=== PATIENT | male | born 1955 | race Caucasian/White ===

== ENCOUNTER 2019-08-23 06:39 | Inpatient (IN) | payer OTHER ==
[~2019-08-23] VITALS: Ht 172.7 cm; Wt 109.9 kg
[~2019-08-23 06:39] MED LIST: CELEBREX PO; COUMADIN 5 MG TA5 M1 PO; HYDROCODON-ACE1 EACH PO; IBUPROFEN 800800 M1 PO; KEFLEX250 M1 PO; LOVENOX SC; SYNTHROID100 MC1 PO; TRAMADOL 50 MG50 MG PO
[2019-08-23 06:53] VITALS: BP 123/81
[2019-08-23] MEDS ORDERED: LISINOPRIL20 MG PO (06:56)
[2019-08-23] MEDS ORDERED: GLIPIZIDE 10 MG10 MG PO (06:57)
[2019-08-23] MEDS ORDERED: JANUMET 50-5001 EACH PO (06:57)
[2019-08-23] MEDS ORDERED: BASAGLAR K100 UNIT/1 SUBQ (06:58)
[2019-08-23] MEDS ORDERED: [UNRECOGNIZED DRUG - OTHER] PO (06:58)
[2019-08-23 07:18] LABS: ABSOLUTE BASOPHILS 0.1 thou/uL (0.0-0.2); ABSOLUTE EOSINOPHILS 0.3 thou/uL (0.0-0.7); ABSOLUTE LYMPHOCYTES 1.4 thou/uL (0.8-5.3); ABSOLUTE NEUTROPHILS 7.3 thou/uL (1.6-8.1); BASOPHILS 0.6 %; EOSINOPHILS 2.5 %; HEMATOCRIT 42.9 % (42.0-52.0); HEMOGLOBIN 14.6 gm/dL (14.0-18.0); LYMPHOCYTES 13.9 %; MCH 32.1 pg (26.0-34.0); MCV 94.3 fL (80.0-100.0); MONOCYTES 9.8 %; MPV 8.9 fl. (7.2-11.1); NUCLEATED RBCS 0 /100WBC; PLATELET COUNT* 279 thou/uL (150-400); POLYS 73.2 %; RBC 4.55 mil/uL (4.50-6.00); RDW-CV 14.3 % (10.5-14.5)
[2019-08-23 07:26] LABS: ANION GAP 11 mmol/L (7-16); BUN 25 mg/dL (7-18); CALCIUM 8.5 mg/dL (8.5-10.1); CHLORIDE 105 mmol/L (98-107); CO2 22 mmol/L (21-32); CREATININE 1.5 mg/dL (0.6-1.3); GLUCOSE 158 mg/dL (70-99); POTASSIUM 4.1 mmol/L (3.5-5.1); SODIUM 138 mmol/L (136-145)
[2019-08-23 07:35] LABS: ALBUMIN 4.1 g/dL (3.4-5.0); ALKALINE PHOSPHATASE 31 U/L (46-116); SGOT 22 U/L (15-37); SGPT 33 U/L (30-65); TOTAL BILIRUBIN 0.6 mg/dL (<0.1-1.0); TOTAL PROTEIN 7.8 g/dL (6.4-8.2); TROPONIN-I LEVEL <0.06 ng/mL (<0.06)
[2019-08-23 07:39] LABS: APTT 26.1 Seconds (25.0-31.3); INR 1.1; PROTIME 11.4 Seconds (9.20-11.50)
[2019-08-23] MEDS ORDERED: ASPIRIN325 PO (08:14)
--- NOTE | 2019-08-23 08:59 | NUR ---
PATIENT IS BEING TRANSPORTED TO CT BY RADIOLOGY.
[2019-08-23 10:12] LABS: URINE BILIRUBIN NEGATIVE (Negative); URINE BLOOD NEGATIVE (Negative); URINE CLARITY CLEAR; URINE COLOR YELLOW; URINE GLUCOSE-RANDOM NEGATIVE (Negative); URINE KETONES NEGATIVE (Negative); URINE LEUKOCYTES-REFLEX NEGATIVE (Negative); URINE NITRITE-REFLEX NEGATIVE (Negative); URINE PROTEIN NEGATIVE (Negative); URINE SPECIFIC GRAVITY <= 1.005 (1.005-1.030); URINE UROBILINOGEN 0.2 E.U./dl (0.2-1.0)
[2019-08-23 11:53] VITALS: BP 113/62
--- NOTE | 2019-08-23 14:08 | NUR ---
RECEIVED REPORT FROM ER AT 1140, GET SITUATED TO ROOM, TELE IN PLACED TRACING SR ON MONITOR. PT COMPLAINS OF BILATERAL LEG PAIN RELIEVED BY REST. PT AOX4, UP SBA, O2 SAT 90'S RA. IV ACCESS INTACT, LAST BM TODAY. PT FOR ACCU CHECK. VSS. ADMISSION ASSESSMENT CHARTED. RECONCILED MEDS. SCD ON, CALL LIGHT WITHIN REACH, HOURLY ROUNDING, WILL CONTIMUE TO MONITOR
[2019-08-23 16:00] VITALS: BP 118/65
[2019-08-23 20:00] VITALS: BP 142/71
[2019-08-24] VITALS: BP 125/65
[2019-08-24 04:00] VITALS: BP 121/65
[2019-08-24 08:00] VITALS: BP 123/71
[2019-08-24 11:36] VITALS: BP 139/78
--- NOTE | 2019-08-24 11:51 | EKG ---
[place] [address] ELECTROCARDIOGRAM REPORT Name: CIERRA VALERA Room: [address] ADM IN M.R.#: [id number] Admission: 08/23/19 Attend Phys: Rodolfo Anne Discharge: Date of : 59 Report #: [id number] THIS REPORT FOR: //name// [facility] ED Test Date: 2019-08-23 Test Time: 08:21:28 Pat Name: CIERRA VALERA Department: Room: [facility] Gender: M Top Polisher: : 1955 Requested By: Lelo Sheldon Order Number: [id number] MD: Boris Murray Measurements Intervals [place] Rate: 73 P: 13 OR: 153 QRS: 5 QRSD: 96 T: -1 QT: 333 QTc: 367 Interpretive Statements Sinus rhythm Borderline T abnormalities, inferior leads Borderline ST elevation, lateral leads Compared to ECG 09/03/2011 14:40:59 T-wave abnormality now present ST (T wave) deviation now present Electronically Signed On 08-24-2019 11:51:37 CDT by Boris Murray [email or web address] <ELECTRONICALLY SIGNED> By: Boris Murray MD, FACC 08/24/19 1151 0 0 Boris Murray MD, [facility] /EPI
[2019-08-24] MEDS ORDERED: ELIQUIS5 MG PO (13:02)
--- NOTE | 2019-08-24 13:34 | NUR ---
Pt is A&O. Resides at home with his . Active and independent. No DME. No hx of HH or SNF. Goal is home at wa, anticipate dc today. Following.
[2019-08-24 13:58] VITALS: BP 139/78
--- NOTE | 2019-08-24 15:24 | NUR ---
ASSUSSMED CARE OF PT APPROX 0730. REASSESSMENT COMPLETED CHARTED. MEDICATIONS GIVEN CHARTED. DISCUSSED MEDICATIONS WITH PT. PT VERBALIZED UNDERSTNDING. SAFETY PRECAUTIONS UTILZED, HOURLY ROUNDED FOR PT SAFTEY. DISCHARGE TEACHING COMPLETED WITH PT, PT VERBALIZED UNDERSTANDING. PT FAMILY AT BEDSIDE. PT ESCORTED TO VEHICLE.
== END 2019-08-24 14:30 | disposition home or self-care (01) | DRG 299 ==
LOC: M.ERS 06:39 → M.2W 10:10 → M.TBA-ER 10:10 → M.2W 11:38
PROVIDERS: Personal Emergency Response Attendant; ADMIT Internal Medicine
DX: I82.433 Acute embolism and thrombosis of popliteal vein, bilateral (principal); I26.99 Other pulmonary embolism without acute cor pulmonale; E03.9 Hypothyroidism, unspecified; M19.90 Unspecified osteoarthritis, unspecified site; I82.412 Acute embolism and thrombosis of left femoral vein; Z96.651 Presence of right artificial knee joint; Z90.49 Acquired absence of other specified parts of digestive tract; Z80.0 Family history of malignant neoplasm of digestive organs; Z79.899 Other long term (current) drug therapy

== ENCOUNTER 2019-08-28 13:12 | Inpatient (IN) | payer OTHER ==
[~2019-08-28] VITALS: Ht 175.3 cm; Wt 108.8 kg
[~2019-08-28 13:12] MED LIST changes: +ASPIRIN325 PO; +BASAGLAR K100 UNIT/1 SUBQ; +ELIQUIS5 MG PO; +GLIPIZIDE 10 MG10 MG PO; +JANUMET 50-5001 EACH PO; +LISINOPRIL20 MG PO; +[UNRECOGNIZED DRUG - OTHER] PO
[2019-08-28 13:18] VITALS: BP 154/89
[2019-08-28 13:53] LABS: ABSOLUTE BASOPHILS 0.1 thou/uL (0.0-0.2); ABSOLUTE EOSINOPHILS 0.3 thou/uL (0.0-0.7); ABSOLUTE LYMPHOCYTES 1.4 thou/uL (0.8-5.3); ABSOLUTE MONOCYTES 0.8 thou/uL (0.0-1.2); BASOPHILS 0.7 %; EOSINOPHILS 2.9 %; HEMATOCRIT 40.9 % (42.0-52.0); HEMOGLOBIN 13.9 gm/dL (14.0-18.0); LYMPHOCYTES 14.9 %; MCH 32.4 pg (26.0-34.0); MCHC 34.1 g/dL (28.0-37.0); MONOCYTES 7.9 %; MPV 8.8 fl. (7.2-11.1); NUCLEATED RBCS 0 /100WBC; PLATELET COUNT* 313 thou/uL (150-400); POLYS 73.6 %; RDW-CV 14.4 % (10.5-14.5); WBC 9.6 thou/uL (4.0-11.0)
[2019-08-28 14:01] LABS: ANION GAP 10 mmol/L (7-16); BUN 20 mg/dL (7-18); CALCIUM 8.6 mg/dL (8.5-10.1); CHLORIDE 100 mmol/L (98-107); CO2 24 mmol/L (21-32); CREATININE 1.2 mg/dL (0.6-1.3); GLUCOSE 145 mg/dL (70-99); POTASSIUM 4.9 mmol/L (3.5-5.1); SODIUM 134 mmol/L (136-145)
[2019-08-28 14:11] LABS: ALBUMIN 3.6 g/dL (3.4-5.0); ALKALINE PHOSPHATASE 28 U/L (46-116); LIPASE 141 U/L (73-393); SGOT 35 U/L (15-37); SGPT 35 U/L (30-65); TOTAL BILIRUBIN 0.7 mg/dL (<0.1-1.0); TOTAL PROTEIN 7.4 g/dL (6.4-8.2); TROPONIN-I LEVEL <0.06 ng/mL (<0.06)
[2019-08-28 14:22] LABS: BE -2.5 mmol/L (-2 to +3); PCO2 35.5 mmHg (35.0-45.0); PO2 72.2 mmHg (75.0-100.0); pH 7.402 (7.340-7.450)
[2019-08-28 14:56] LABS: URINE BILIRUBIN NEGATIVE (Negative); URINE BLOOD NEGATIVE (Negative); URINE CLARITY CLEAR; URINE COLOR YELLOW; URINE GLUCOSE-RANDOM NEGATIVE (Negative); URINE KETONES NEGATIVE (Negative); URINE LEUKOCYTES-REFLEX NEGATIVE (Negative); URINE NITRITE-REFLEX NEGATIVE (Negative); URINE PROTEIN NEGATIVE (Negative); URINE SPECIFIC GRAVITY >= 1.030 (1.005-1.030); URINE UROBILINOGEN 0.2 E.U./dl (0.2-1.0)
[2019-08-28 15:48] LABS: APTT 28.7 Seconds (25.0-31.3); INR 1.1; PROTIME 11.4 Seconds (9.20-11.50)
--- NOTE | 2019-08-28 16:28 | EKG ---
[place] [address] ELECTROCARDIOGRAM REPORT Name: CIERRA VALERA Room: [place] [address] ADM IN .R.#: [id number] Admission: 08/28/19 Attend Phys: Chichi Mullins MD Discharge: Date of : 59 Report #: [id number] THIS REPORT FOR: //name// [facility] ED Test Date: 2019-08-28 Test Time: 13:19:22 Pat Name: CIERRA VALERA Department: Room: [facility] Gender: M Braid Folder: EV : 1955 Requested By: Lelo Sheldon Order Number: [id number] MD: Cierra Romano Measurements Intervals [place] Rate: 93 P: 64 MS: 146 QRS: 25 QRSD: 98 T: 3 QT: 347 QTc: 432 Interpretive Statements Sinus rhythm Probable left atrial enlargement Inferior infarct, old Compared to ECG 08/23/2019 08:21:28 Myocardial infarct finding now present T-wave abnormality no longer present ST (T wave) deviation no longer present Electronically Signed On 08-28-2019 16:28:32 CDT by Cierra Romano [email or web address] <ELECTRONICALLY SIGNED> By: Cierra Romano MD, FAC 08/28/19 1628 1319 1319 Cierra Romano MD, [facility] /EPI
[2019-08-28 17:36] VITALS: BP 139/82
[2019-08-28 18:00] VITALS: BP 138/86
[2019-08-28] MEDS ORDERED: ZANTAC 150MG T150 MG PO (18:29)
[2019-08-28 20:00] VITALS: BP 135/68
[2019-08-28 20:24] VITALS: BP 135/68
[2019-08-28 23:56] VITALS: BP 126/72
--- NOTE | 2019-08-29 01:55 | NUR ---
PT ALERT AND ORIENTED. BR WITH BRP. VOIDS PER URINAL. AT BS. HEPARIN BOLUS AND QTT STARTED AT 1500 UNITS/HR. NEXT PTT AT 0230. TELEMETRY SHOWS SR. RESTING.
[2019-08-29 03:11] LABS: HEMOGLOBIN 13.4 gm/dL (14.0-18.0); MCH 31.8 pg (26.0-34.0); MCHC 33.6 g/dL (28.0-37.0); MCV 94.7 fL (80.0-100.0); MPV 8.2 fl. (7.2-11.1); RBC 4.23 mil/uL (4.50-6.00); RDW-CV 14.1 % (10.5-14.5); WBC 8.5 thou/uL (4.0-11.0)
[2019-08-29 03:20] LABS: CALCIUM 8.2 mg/dL (8.5-10.1); CREATININE 1.3 mg/dL (0.6-1.3); MAGNESIUM 2.2 mg/dL (1.8-2.4); POTASSIUM 4.7 mmol/L (3.5-5.1)
[2019-08-29 04:39] VITALS: BP 120/63
[2019-08-29 07:45] VITALS: BP 121/74
--- NOTE | 2019-08-29 11:00 | 2DMMODE ---
[place] [address] 2 D/M-MODE ECHOCARDIOGRAM Name: CIERRA VALERA Room: [address] ADM IN Sonya#: [id number] Admission: 08/28/19 Attend Phys: Chichi Mullins, Discharge: Date of : 59 Date of Service: 08/29/19 1100 Report #: [id number] THIS REPORT FOR: //name// APPROVED REPORT Study performed: 08/29/2019 09:53:31 EXAM: Comprehensive 2D, Doppler, and color-flow Echocardiogram Patient Location: In-Patient Room #: [facility] Status: routine BSA: 2.24 HR: 75 bpm BP: 121/74 mmHg Rhythm: NSR Other Information Study Quality: Good Indications Pulmonary Embolism 2D Dimensions IVSd: 10.64 (7-11mm) LVOT Diam: 19.33 (18-24mm) LVDd: 50.62 mm PWd: 10.64 (7-11mm) LVDs: 26.83 (25-40mm) Aortic Root: 28.14 mm Volumes Left Atrial Volume (Systole) LA ESV Index: 17.60 mL/m2 Aortic Valve AoV Peak Morgan.: 1.39 m/s AO Peak Gr.: 7.77 mmHg LVOT Max P.79 mmHg AO Mean Gr.: 4.58 mmHg LVOT Mean P.63 mmHg LVOT Max V: 1.20 m/s AO V2 VTI: 24.92 cm LVOT Mean V: 0.73 m/s ODILON (VTI): 2.60 cm2 LVOT V1 VTI: 22.09 cm Mitral Valve E/A Ratio: 1.08 MV Decel. Time: 213.41 ms MV E Max Morgan.: 0.66 m/[place] [address] 2 D/M-MODE ECHOCARDIOGRAM Name: CIERRA VALERA Room: [address] IN M.R.#: [id number] Admission: 08/28/19 Attend Phys: Chichi Mullins, Discharge: Date of : 59 Date of Service: 08/29/19 [facility] Report #: [id number] MV PHT: 61.89 ms MVA (PHT): 3.55 cm2 TDI E/Lateral E': 6.00 E/Medial E': 5.50 Medial E' Morgan.: 0.12 m/s Lateral E' Morgan.: 0.11 m/s Pulmonary Valve PV Peak Morgan.: 1.18 m/s PV Peak Gr.: 5.56 mmHg Tricuspid Valve RAP Estimate: 5.00 mmHg TR Peak Gr.: 22.72 mmHg RVSP: 27.00 mmHg PA Pressure: 27.00 mmHg Left Ventricle The left ventricle is normal size. There is normal LV segmental wall motion. There is normal left ventricular wall thickness. Left ventricular systolic function is normal. LVEF is 55-60%. The left ventricular diastolic function is normal. Right Ventricle The right ventricle is normal size. The right ventricular systolic function is normal. Atria The left atrium size is normal. The right atrium size is normal. Aortic Valve The aortic valve is normal in structure. No aortic regurgitation is present. There is no aortic valvular stenosis. Mitral Valve The mitral valve is normal in structure. There is no mitral valve regurgitation noted. No evidence of mitral valve stenosis. Tricuspid Valve The tricuspid valve is normal in structure. Mild tricuspid regurgitation. No pulmonary hypertension. Pulmonic Valve The pulmonary valve is normal in structure. There is [place]mon[place] [address] 2 D/M-MODE ECHOCARDIOGRAM Name: VALERACIERRA Room: [address] IN [facility]#: [id number] Admission: 08/28/19 Attend Phys: Chichi Mullins, Discharge: Date of : 59 Date of Service: 08/29/19 1100 Report #: [id number] Great Vessels The aortic root is normal in size. IVC is not well visualized. Pericardium There is no pericardial effusion. <Conclusion> The left ventricle is normal size. There is normal left ventricular wall thickness. Left ventricular systolic function is normal. LVEF is 55-60%. The left ventricular diastolic function is normal. Mild tricuspid regurgitation. No pulmonary hypertension. <ELECTRONICALLY SIGNED> By: Alfred Fischer MD, FACC 08/29/19 1100 1100 99 Alfred Fischer MD, FACC /INF
[2019-08-29 12:00] VITALS: BP 118/62
--- NOTE | 2019-08-29 15:21 | NUR ---
WAS ASKED TO CHECK COST ON LOVENOX FOR ONE WEEK, PER [facility], IS $10 FOR 14 100MG SYRINGES. NO SCRIPT CALLED IN, JUST CHECKED COST
[2019-08-29 16:15] VITALS: BP 124/68
--- NOTE | 2019-08-29 16:36 | NUR ---
Pt readmitted. Pt lives at home with and has been independent, no needs. No history of HH or SNF and no DME. SW to continue to follow to assist with safe dc planning if needs arise.
--- NOTE | 2019-08-29 18:14 | NUR ---
ASSUMED PT CARE AT 0730, FULL ASSESMENT DONE CHARTED. PT A/O X4, BEDREST THIS AM. PT USES CALL LIGHT APPROPRIATLY FOR ASSISTANCE TO BATHROOM. PT EDUCATED SEVERAL TIMES ON THE PLAN OF CARE AND MEDS. PT DENIES PAIN, STATES "I AM FEELING BETTER THAN YESTERDAY BUT HAD A LITTLE TROUBLE BREATHING WHEN I WENT TO THE BATHROOM." PT ON RA, VSS, SR ON THE MONITOR. WILL CONTINUE WITH PLAN OF CARE.
[2019-08-29 19:40] VITALS: BP 135/54
[2019-08-29 23:53] VITALS: BP 103/62
[2019-08-30 04:00] VITALS: BP 116/61
[2019-08-30 05:09] LABS: INR 1.1; PROTIME 11.2 Seconds (9.20-11.50)
--- NOTE | 2019-08-30 05:11 | NUR ---
PT ALERT AND ORIENTED. VSS ON RA. ASSESSMENT DOCUMENTED. MED GIVEN PER EMAR. PT AMBULATED TO BATHROOM BUT STATES HE FEELS LIKE HE MAY NOT BE STRONG ENOUGH TO WALK TO BATHROOM. PT INFORMED TO CALL FOR ASSISTANCE IF GOING TO BATHROOM. URINALS CLOSE TO PT AND EMPTIED ACCORDINGLY. AT BEDSIDE THIS SHIFT. CALL LIGHT WITHIN REACH. HOURLY ROUNDINGS MADE. WILL CONTINUE TO MONITOR.
[2019-08-30 12:00] VITALS: BP 129/69
--- NOTE | 2019-08-30 15:00 | NUR ---
SPOKE WITH PT.IN ROOM. DISCUSSED COST OF LOVENOX. HE SAID THAT WAS FINE. HE HAS GIVEN HIMSELF INJECTIONS BEFORE. IE:INSULIN,LOVENOX IN PAST. EXPLAINED NEED TO TAKE COUMADIN AND LOVENOX,BOTH,UNTIL INR THERAPUETIC. HE IS AGREEABLE TO HOME HEALTH IF ORDERED.
[2019-08-30 16:00] VITALS: BP 108/51
[2019-08-30 20:00] VITALS: BP 122/65
[2019-08-31 00:39] VITALS: BP 106/63
--- NOTE | 2019-08-31 02:55 | NUR ---
PT ALERT ORIENTED. UP AD JOHN IN ROOM. TELEMETRY SHOWS SR. L LOWER EXTREMETY 2+ EDEMA. THIGH HIGH TEDS ON. PT COMFORTABLE.
[2019-08-31 04:00] VITALS: BP 100/42
[2019-08-31 04:32] LABS: INR 1.2; PROTIME 12.1 Seconds (9.20-11.50)
[2019-08-31 07:45] VITALS: BP 130/71
--- NOTE | 2019-08-31 11:19 | NUR ---
ASSUMED CARE OF PT AT 0730. PT RESTING IN CHAIR WAITING FOR BREAKFAST. PT A&0X4, DENIES ANY PAIN OR SHORTNESS OF BREATH AT THIS TIME. TRACING SR ON THE QUALITY ASSURANCE QA LAB TECHNICIAN. ST WITH AMBULATION. ON RA SAT 95%, 2L NC PRN. PT UP AD JOHN IN ROOM. THIGH HIGH KRANTHI HOSE TO BLE-EDEMA-2+ NOTED TO LLE. GOAL FOR TODAY IS PAIN MGMT, MONITOR LABS, INCREASE ACTIVITY AND EXERCISE DESAT PER PULM. AM ASSESSMENT CHARTED. MEDICATIONS PER JAN. PT REPOSITIONS SELF. HOURLY ROUNDING OBSERVED. BED IN LOW POSITION. CALL LIGHT WITHIN REACH. WILL CONTINUE PLAN OF CARE.
[2019-08-31 12:04] VITALS: BP 119/60
[2019-08-31 16:11] VITALS: BP 112/67
--- NOTE | 2019-08-31 16:37 | NUR ---
ASSUMED CARE OF PT THIS AM AROUND 1615- PT BS NOTED TO BE 74, SCHEDULED EVENING METFORMIN HELD- COUMADIN GIVEN PRESCRIBED- CALL LIGHT AND PERSONAL BELONGINGS WITH IN REACH- PT MAKES NEEDS KNOWN- ALL NEEDS MET AT THIS TIME-WCLENORA
[2019-08-31 20:00] VITALS: BP 118/62
[2019-09-01] VITALS (7 sets, daily range): BP systolic 105–122; BP diastolic 59–69
[2019-09-01 03:57] LABS: INR 1.6
--- NOTE | 2019-09-01 05:30 | NUR ---
PT ABLE TO GIVE SELF INJECTION OF LOVENOX WITHOUT PROMPTING.PT RESTED COMFORTABLY WITHOUT COMPLAINT.TELE SHOWS SR. PT GOALS MET. MEDS GIVEN PER EMAR.CALL LIGHT WITHIN REACH.
[2019-09-01] MEDS ORDERED: LEVAQUIN 750 M750 MG PO (09:30)
[2019-09-01] MEDS ORDERED: COUMADIN 5 MG TA5 M1 PO (09:30)
[2019-09-01] MEDS ORDERED: ENOXAPARIN100 MG/11 SUBQ (09:30)
--- NOTE | 2019-09-01 11:16 | NUR ---
ASSUMED CARE OF PT AT 0730. PT RESTING IN CHAIR WAITING FOR BREAKFAST. A&0X4, DENIES ANY PAIN OR SHORTNESS OF BREATH AT THIS TIME. TRACING SR ON THE EMBEDDED HARDWARE ENGINEER. ON RA SAT 97%. PT UP AD JOHN IN ROOM. PT GOAL FOR TODAY IS CONTINUE WITH LOVENOX EDUCATION AND DISCHARGE PLANNING TO HOME. AM ASSESSMENT CHARTED. MEDICATIONS PER MAR. PT REPOSITIONS SELF. HOURLY ROUNDING OBSERVED. BED IN LOW POSITION. CALL LIGHT WITHIN REACH. WILL CONTINUE PLAN OF CARE.
--- NOTE | 2019-09-01 14:46 | CON ---
[address] [address] CONSULTATION Name: CIERRA VALERA Room: [address] IN M.R.#: [id number] Admission: 08/28/19 Attend Phys: Chichi Mullins MD Discharge: Date of : 59 Report #: [id number] THIS REPORT FOR: //name// CC: Chichi Amaro DATE OF SERVICE: 08/29/2019 The patient was seen earlier in the morning. REASON FOR CONSULTATION: DVT. HISTORY OF PRESENT ILLNESS: A 63-year-old male who has been previously diagnosed with a left lower extremity DVT back as 7 years ago, which was provoked after surgery. The patient reported he had a filter placed at that time. He was admitted to [facility] after bilateral lower extremity pain with abdominal pain. Two weeks ago, he has been diagnosed with DVT and PE and he was started on Eliquis. The patient on multiple occasions was compliant with his Eliquis treatments, and upon evaluation yesterday in the Emergency Room, CT scan showed the IVC filter with occlusive thrombus extending from the filter inferiorly throughout the common iliac, external iliac, common femoral and visualized proximal superficial femoral vein, appears to be progressive compared to 08/23/2019. Also, carotid Doppler which was done today which showed mild bilateral atherosclerotic plaquing without hemodynamically significant stenosis. The patient has been started on anticoagulation with heparin. He had a 2D echo, which showed ejection fraction of 50-60%. The patient does not have any family history of DVT. REVIEW OF SYSTEMS: All systems are reviewed, it was negative except the above. PAST MEDICAL HISTORY: DVT and PE as mentioned above. He is very active. Hypertension, hypothyroidism, diabetes mellitus. MEDICATIONS: Per admission list. ALLERGIES: No known allergies. PAST SURGICAL HISTORY: Right knee replacement, tonsillectomy, appendectomy, carpal tunnel surgery, cataract surgery. FAMILY HISTORY: Mother with colon cancer. SOCIAL HISTORY: No smoking. He drinks alcohol occasionally. No drug abuse. PHYSICAL EXAMINATION: VITAL SIGNS: Today, temperature 36.9, pulse 76, respirations 17, [place] [address] CONSULTATION Name: CIERRA VALERA Room: [address] IN [facility]#: [id number] Admission: 08/28/19 Attend Phys: Chichi Mullins MD Discharge: Date of : 59 Report #: [id number] is 124/74. GENERAL: The patient was lying in bed. He was not in acute distress. LUNGS: Clear to auscultation bilaterally. HEART: Regular rate and rhythm. S1, S2 within normal limits. ABDOMEN: Soft, nontender, nondistended. Lower extremity showed positive edema, warmth, and no erythema. LABORATORY DATA: Today, WBC 8.5, hemoglobin 13.4, platelets 285,000. Coagulation: PT 11.4, PTT most recent one this morning around 10 o'clock it was 54.4, creatinine 1.1. IMAGING: As mentioned above. ASSESSMENT AND PLAN: A 63-year-old male who has been evaluated because of progressive deep venous thrombosis despite being on anticoagulation with Eliquis. The patient does not have any provoking factors. However, previously 6-7 years ago, he had an IVC filter placed which was treated with 3-6 months of anticoagulation with Coumadin. RECOMMENDATIONS: At this point, I agree with anticoagulation with heparin. We will also agree with vascular evaluation for thrombectomy. In terms of anticoagulation once the decision is made regarding his surgical intervention, the patient can be started on oral anticoagulant with Coumadin with a goal of INR between 2 and 3. At this point, I would hold on thrombophilia workup since the patient will be on anticoagulation for the rest of his life since it is a second deep venous thrombosis regardless the results of the thrombophilia. We will continue to follow the patient during hospitalization. <ELECTRONICALLY SIGNED> By: Baldomero Moise MD 09/01/19 1446 1740 2130Baldomero Moise MD /nt
--- NOTE | 2019-09-01 16:22 | NUR ---
Pt to dc home today in need of HH RN to check INR starting tomorrow and every day forth until INR therapuetic. TENISHA attempted multiple (12) HH agencies and they were either not in network with [facility] or did not have staffing available to start tomorrow. TENISHA sent Brianne Isaac the referral and called to follow up on status, Brianne Isaac quoted stating that a response would take at least 4 hours. TENISHA had called [facility] HH agency earlier who had not had a nurse available for Wednesday but then [facility] called back stating that they would be able to have a nurse to see pt on Wednesday after all. [facility] accepted referral with following doctor of Dr Moise to manage the coumadin/INR. [facility] ph [phone] fax [phone]
--- NOTE | 2019-09-01 17:02 | NUR ---
DISCHARGE ORDERS RECEIVED. DISCHARGE INSTRUCTIONS, CARE NOTES, SCRIPTS AND FOLLOW UP APPTS GIVEN TO PT. PT COMMUNICATES UNDERSTANDING OF DISCHARGE TEACHING. IV AND KIER TENDER REMOVED. PT DISCHARGED WITH ALL BELONGINGS AND PAPERWORK VIA WHEELCHAIR WITH NURSING STAFF TO SPOUSE OWN PERSONAL VEHICLE. DISCHARGED TO HOME WITH HOME HEALTH.
== END 2019-09-01 17:02 | disposition home health service (06) | DRG 299 ==
LOC: M.ERS 13:12 → M.2W 16:14 → M.TBA-ER 16:14 → M.2W 17:46
PROVIDERS: Personal Emergency Response Attendant; ADMIT Internal Medicine
DX: I82.423 Acute embolism and thrombosis of iliac vein, bilateral (principal); I26.99 Other pulmonary embolism without acute cor pulmonale; J18.9 Pneumonia, unspecified organism; E03.9 Hypothyroidism, unspecified; M19.90 Unspecified osteoarthritis, unspecified site; Z96.651 Presence of right artificial knee joint; Z90.49 Acquired absence of other specified parts of digestive tract; Z80.0 Family history of malignant neoplasm of digestive organs; Z95.828 Presence of other vascular implants and grafts; Z79.82 Long term (current) use of aspirin; Z79.899 Other long term (current) drug therapy; Z79.01 Long term (current) use of anticoagulants; Z28.21 Immunization not carried out because of patient refusal

== ENCOUNTER → 2019-09-12 | Outpatient (CLI) | payer OTHER ==
[~2019-09-12] MED LIST changes: +ENOXAPARIN100 MG/11 SUBQ; +LEVAQUIN 750 M750 MG PO; +ZANTAC 150MG T150 MG PO
--- NOTE | 2019-09-13 17:37 | HEMONC ---
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 SUBJECTIVE: The patient presented today after he was discharged from the hospital. He was transitioned from Lovenox to Coumadin. I checked his INR as an outpatient and he had overlap with Lovenox and Coumadin with a therapeutic INR for more than 2 days. Most recent INR yesterday was 1.8. The patient reported that he is consistent with his green vegetable diet. He reported still exercise intolerance. He will feel very short of breath quickly. His right lower extremity swelling has decreased significantly. Today, we discussed the value of thrombophilia, which is not going to make any difference for his treatment. He is going to be on Coumadin since he failed Eliquis and he will be on a lifelong anticoagulation. REVIEW OF SYSTEMS: All systems reviewed. It was negative except the above. PAST MEDICAL, SOCIAL, FAMILY HISTORY: Unchanged except from his last visit. MEDICATIONS: List has been reviewed. PHYSICAL EXAMINATION: VITAL SIGNS: Blood pressure is 126/89, pulse is 102, respirations 18, temperature is 97.7, sat is 96% on room air. GENERAL: The patient was sitting in chair, was not in acute distress. LUNGS: Clear to auscultations bilaterally. HEART: Regular rate and rhythm. S1, S2 within normal limits. ABDOMEN: Soft, nontender, nondistended. EXTREMITIES: Trace of edema on the right lower extremity. ASSESSMENT AND PLAN: A 63-year-old male who has been previously evaluated in the inpatient setting due to extensive right lower extremity deep venous thrombosis. The patient had unprovoked episodes prior deep venous thrombosis, which was provoked after surgery 7 years ago on the left lower extremity. The patient failed Eliquis with a progression of his deep venous thrombosis. RECOMMENDATIONS: The patient continues to tolerate Coumadin. His INR yesterday was 1.8. I would like to repeat his INR in the next 48 [place] [address] HEMATOLOGY ONCOLOGY NOTE Name: CIERRA VALERA Room: [facility]#: [id number] Admission: 09/12/19 Attend Phys: Baldomero Moise MD Discharge: Date of : 59 Report #: [id number] subtherapeutic, we will increase his dose to 7 mg. The last change in his Coumadin dose was 4 days ago 6 mg. The patient was encouraged to do persistent small activity, leg elevations. <ELECTRONICALLY SIGNED> By: Baldomero Moise MD 09/13/19 1737 0951 1037Mohammad MD Suma /miguel angel
== END ==
LOC: M.RTH 05:32
DX: I26.99 Other pulmonary embolism without acute cor pulmonale (principal); I82.491 Acute embolism and thrombosis of other specified deep vein of right lower extremity; Z88.8 Allergy status to other drugs, medicaments and biological substances; Z79.899 Other long term (current) drug therapy

== ENCOUNTER → 2019-10-31 | Outpatient (CLI) | payer OTHER ==
--- NOTE | 2019-11-06 08:45 | HEMONC ---
[address] [address] HEMATOLOGY ONCOLOGY NOTE Name: CIERRA VALERA Room: [facility]#: [id number] Admission: 10/31/19 Attend Phys: Baldomero Moise MD Discharge: Date of : 59 Report #: [id number] THIS REPORT FOR: //name// CC: Baldomero Amaro DO DATE OF SERVICE: 10/31/2019 CLINIC NOTE PRIMARY CARE PHYSICIAN: Colt Amaro DO DIAGNOSES: Pulmonary embolism, extensive deep venous thrombosis of the right lower extremity. SUBJECTIVE: The patient presented today as 6 weeks' followup. He has been feeling very good. He denies any shortness of breath, chest pain, palpitations. He reported that the swelling at his lower extremity has improved significantly. His INR has been therapeutic, most recently yesterday it was 2.1. I recommended to continue current dose with 6 mg. Of note, the patient developed VTE episodes despite being on Eliquis. REVIEW OF SYSTEMS: All systems reviewed. It was negative except the above. PAST MEDICAL HISTORY: Unchanged from last visit. SOCIAL HISTORY: Unchanged from last visit. FAMILY HISTORY: Unchanged from last visit. PHYSICAL EXAMINATION: VITAL SIGNS: Today, blood pressure is 119/81, pulse is 84, respirations 18, sats is 97% on room air, and temperature is 98%. GENERAL: The patient was sitting in chair, was not in acute distress. LUNGS: Clear to auscultations bilaterally. HEART: Regular rate and rhythm. S1, S2 within normal limits. EXTREMITIES: +1 edema bilaterally. LABORATORY DATA: INR is 2.1. ASSESSMENT AND PLAN: A 63-year-old male, who has been diagnosed with recurrent extensive right lower extremity pulmonary embolism, unprovoked, despite being on Eliquis. The patient is currently on Coumadin with a therapeutic INR between 2 and 3. [place] [address] HEMATOLOGY ONCOLOGY NOTE Name: MORAIMACIERRA HAFSA Room: [facility]#: [id number] Admission: 10/31/19 Attend Phys: Baldomero Moise MD Discharge: Date of : 59 Report #: [id number] anticoagulation. Monitor INR every 2 weeks. Followup will be in 4 months. Ultrasound of the lower extremities before next visit. <ELECTRONICALLY SIGNED> By: Baldomero Moise MD 11/06/19 0845 1110 [id number] Moise MD /nt
== END ==
LOC: M.RTH 05:11
DX: I26.99 Other pulmonary embolism without acute cor pulmonale (principal); I82.491 Acute embolism and thrombosis of other specified deep vein of right lower extremity; Z79.899 Other long term (current) drug therapy

== ENCOUNTER → 2020-03-15 | Outpatient (CLI) | payer OTHER | LOC: M.ULTRA 11:25 | DX: I82.401 Acute embolism and thrombosis of unspecified deep veins of right lower extremity (principal) ==

== ENCOUNTER → 2020-03-19 | Outpatient (CLI) | payer OTHER ==
--- NOTE | ~2020-03-19 | HEMONC ---
[address] [address] HEMATOLOGY ONCOLOGY NOTE Name: CIERRA VALERA Room: [facility]#: [id number] Admission: 03/19/20 Attend Phys: Baldomero Moise MD Discharge: Date of : 59 Report #: [id number] THIS REPORT FOR: //name// CC: Baldomero Amaro DO DATE OF SERVICE: 03/19/2020 CLINIC NOTE DIAGNOSIS: Extensive DVT, PE. SUBJECTIVE: The patient presented today as 4 months followup. He has been doing fairly well except for the last month, he noted exercise intolerance, some tachycardia. He was already seen by primary care physician who ordered workup including a 2D echo. The patient denies any cough or shortness of breath at rest. He had lower extremity swelling, however, which has been chronic. I reviewed his Doppler, which showed resolving of his left lower extremity DVT; on the right, unchanged thrombus. Also, I reviewed his INR check, which most recently it was 2.8 within the therapeutic range. REVIEW OF SYSTEMS: All systems were reviewed. It was negative except the above. PAST MEDICAL, SOCIAL, AND FAMILY HISTORY: Unchanged from last visit. PHYSICAL EXAMINATION: VITAL SIGNS: Today, blood pressure is 144/84, pulse is 69, respirations 20, temperature is 97.7, saturations 95%. GENERAL: The patient was sitting in chair. He was not in acute distress. LUNGS: Clear to auscultations bilaterally, symmetrical breathing sounds. No wheezing or crackles. HEART: Regular rate and rhythm. S1, S2 within normal limits. EXTREMITIES: The patient had a +2 edema on the right lower extremities, +1 on the left lower extremities. ASSESSMENT AND PLAN: A 64-year-old male who has been diagnosed with recurrent extensive venous thromboembolism, which was unprovoked despite being on Eliquis. He is currently on Coumadin with a therapeutic range. I recommend lifelong anticoagulation. His INR will be checked [place] [address] HEMATOLOGY ONCOLOGY NOTE Name: CIERRA VALERA Room: [facility]#: [id number] Admission: 03/19/20 Attend Phys: Baldomero Moise MD Discharge: Date of : 59 Report #: [id number] will follow up in 6 months. Agree with 2D echo for his exercise intolerance per primary care physician. By: 0939 [id number] Moise MD /nt
== END ==
LOC: M.RTH 03-05 09:00
DX: I82.402 Acute embolism and thrombosis of unspecified deep veins of left lower extremity (principal); R60.0 Localized edema; G89.29 Other chronic pain

== ENCOUNTER → 2020-03-26 | Outpatient (CLI) | payer OTHER ==
--- NOTE | 2020-03-26 13:50 | 2DMMODE ---
[place] [address] 2 D/M-MODE ECHOCARDIOGRAM Name: CIERRA VALERA Room: [facility]#: [id number] Admission: 03/26/20 Attend Phys: Colt Amaro, Discharge: Date of : 59 Date of Service: 03/26/20 1348 Report #: [id number] THIS REPORT FOR: cc: Colt Amaro Reuel M. DO Liston, Michael J. MD [facility] ~ APPROVED REPORT Study performed: 03/26/2020 10:46:06 EXAM: Comprehensive 2D, Doppler, and color-flow Echocardiogram Patient Location: Out-Patient BSA: 2.21 HR: 71 bpm BP: 145/75 mmHg Other Information Study Quality: Good Indications Dyspnea 2D Dimensions IVSd: 11.79 (7-11mm) LVOT Diam: 20.81 (18-24mm) LVDd: 51.81 mm PWd: 11.58 (7-11mm) Ascending Ao: 30.46 (22-36mm) LVDs: 23.52 (25-40mm) Aortic Root: 26.91 mm Volumes Left Atrial Volume (Systole) LA ESV Index: 14.50 mL/m2 Aortic Valve AoV Peak Morgan.: 1.45 m/s AO Peak Gr.: 8.46 mmHg LVOT Max P.03 mmHg AO Mean Gr.: 4.30 mmHg LVOT Mean P.67 mmHg LVOT Max V: 1.23 m/s AO V2 VTI: 28.48 cm LVOT Mean V: 0.74 m/s ODILON (VTI): 3.01 cm2 LVOT V1 VTI: 25.23 cm Mitral Valve E/A Ratio: 1.02 [place] [address] 2 D/M-MODE ECHOCARDIOGRAM Name: CI[facility]RA VAL[facility]A [id number] Ad[facility]: 03/26/20 Attend Phys: Colt Amaro, Discharge: Date of : 59 Date of Service: 03/26/20 1348 Report #: [id number] MV Decel. Time: 209.27 ms MV E Max Morgan.: 0.67 m/s MV PHT: 60.69 ms MVA (PHT): 3.63 cm2 TDI E/Lateral E': 6.09 E/Medial E': 6.70 Medial E' Morgan.: 0.10 m/s Lateral E' Morgan.: 0.11 m/s Pulmonary Valve PV Peak Morgan.: 1.08 m/s PV Peak Gr.: 4.63 mmHg Tricuspid Valve RAP Estimate: 5.00 mmHg TR Peak Gr.: 18.23 mmHg RVSP: 23.23 mmHg PA Pressure: 23.23 mmHg Left Ventricle The left ventricle is normal size. There is normal LV segmental wall motion. There is normal left ventricular wall thickness. Left ventricular systolic function is normal. LVEF is 60-65%. The left ventricular diastolic function is normal. Right Ventricle The right ventricle is normal size. The right ventricular systolic function is normal. Atria The left atrium size is normal. The right atrium size is normal. Aortic Valve The aortic valve is normal in structure. No aortic regurgitation is present. There is no aortic valvular stenosis. Mitral Valve The mitral valve is normal in structure. There is no mitral valve regurgitation noted. No evidence of mitral valve stenosis. Tricuspid Valve The tricuspid valve is normal in structure. Mild tricuspid regurgitation. No pulmonary hypertension. Pulmonic Valve The pulmonary valve is normal in structure[place] [address] 2 D/M-MODE ECHOCARDIOGRAM Name: CIERRA VALERA Room: [facility]#: [id number] Admission: 03/26/20 Attend Phys: Colt Amaro, Discharge: Date of : 59 Date of Service: 03/26/20 1348 Report #: [id number] regurgitation. Great Vessels The aortic root is normal in size. IVC is not well visualized. Pericardium There is no pericardial effusion. <Conclusion> The left ventricle is normal size. There is normal left ventricular wall thickness. Left ventricular systolic function is normal. LVEF is 60-65%. The left ventricular diastolic function is normal. Mild tricuspid regurgitation. No pulmonary hypertension. <ELECTRONICALLY SIGNED> By: Alfred Fischer MD, FACC 03/26/20 1348 1348 1348 Alfred Fischer MD, FACC /INF
== END ==
LOC: M.CRD 10:42
DX: I08.8 Other rheumatic multiple valve diseases (principal)